=== PATIENT | female | born 1985 | race Caucasian/White ===

== ENCOUNTER 2023-10-16 17:43 | Emergency (ER) | payer OTHER, SELFPAY ==
[2023-10-16 17:58] VITALS: BP 144/94; PULSE 93; RESP 16; TEMP 36.8; O2SAT 100
--- NOTE | 2023-10-16 17:59 | ED.GENADULT ---
HPI - General Adult General Chief complaint: Upper Respiratory Infection Stated complaint: Throat Irritation,Cough Time Seen by Provider: 10/16/23 17:59 Source: patient Mode of arrival: ambulatory Limitations: no limitations History of Present Illness HPI narrative: 38-year-old female patient presents to clinic today with complaints of cough for 8 days that has become more productive. patient states that her came home 9 days ago from a work trip and was feeling ill in the next day she started with congestion. The cough has persisted since then and she is having worsening cough at night when laying down. she reports that during the day she feels like there is a sticky phlegm stuck in her throat that she can not get out. She is also experiencing hoarseness during the day when talking longer than a few minutes. patient denies fevers, chills, body aches, nausea and vomiting, diarrhea, shortness of breath, and chest pain. patient states she has a history of seasonal allergies for which she takes a daily antihistamine and was started on tirzepatide last week for weight loss. Related Data Home Medications Medication Instructions Recorded Confirmed tirzepatide (weight loss) 10/16/23 Allergies Allergy/AdvReac Type Severity Reaction Status Date / Time cefaclor [From [facility]] Allergy Rash Verified 10/16/23 18:05 Review of Systems Review of Systems: CONSTITUTIONAL: Denies fever, chills, or sweats. EYES: Denies visual changes, redness, or discharge. ENT: Denies rhinorrhea, congestion, sore throat, or otalgia. CARDIOVASCULAR: Denies chest pain, palpitations, or edema. RESPIRATORY: positive productive cough and negative dyspnea. GASTROINTESTINAL: Denies abdominal pain, nausea, vomiting, or diarrhea. GENITOURINARY: Denies dysuria or hematuria. SKIN: Denies rash or itching. MUSCULOSKELETAL: Denies back pain, joint pain, or myalgia. NEUROLOGIC: Denies headache, numbness, or weakness. PSYCHIATRIC: Denies anxiety or depression. [facility] Past Medical History Medical History (Updated 10/16/23 @ 18:46 by ZULMA Montilla) Obesity Seasonal allergies Comments at the time of my signature I agree with nursing past medical history, surgical, social, and family history. There is no relevant family history pertinent to the presenting complaint. Exam Narrative: GENERAL: Well-appearing, well-nourished, and in no acute distress. HEAD: Normocephalic, atraumatic. EYES: PERRLA and EOMI. ENT: Nares clear, no rhinorrhea or epistaxis. Mucous membranes moist. bilateral TMs visualized pearly mike with air bubbles, no erythema, bilateral canals clear. posterior oropharynx is free of drainage erythema and edema. NECK: Supple. No lymphadenopathy CHEST: Clear to auscultation. No respiratory distress. HEART: Regular rate and rhythm. No murmur heard. Normal peripheral pulses. ABDOMEN: Soft, nontender, nondistended, normal active bowel sounds. EXTREMITIES: Normal range of motion. No edema. SKIN: Warm, dry, no rash. NEURO: No focal deficits. Alert and oriented x3. Course Course Level of Care: Express Care Visit Vital Signs Vital signs: Vital Signs Temperature 36.8 C 10/16/23 17:58 Pulse Rate 93 10/16/23 17:58 Respiratory Rate 16 10/16/23 17:58 Blood Pressure 144/94 H 10/16/23 17:58 Pulse Oximetry 100 10/16/23 17:58 Oxygen Delivery Room Air 10/16/23 17:58 Temperature 36.8 C 10/16/23 17:58 Pulse Rate 93 10/16/23 17:58 Respiratory Rate 16 10/16/23 17:58 Blood Pressure 144/94 H 10/16/23 17:58 Pulse Oximetry 100 10/16/23 17:58 Oxygen Delivery Room Air 10/16/23 17:58 vital signs reviewed. The patient has been informed that they may have pre-hypertension or Hypertension based on a BP reading in the department. I recommend that the patient call the primary care provider listed on their discharge instructions or a physician of their choice this week to arrange follow up for furthe
== END 2023-10-16 19:01 | disposition home or self-care (01) ==
PROVIDERS: Emergency Provider Nurse Practitioner Family
DX: J04.0 Acute laryngitis (principal); K21.9 Gastro-esophageal reflux disease without esophagitis; E66.9 Obesity, unspecified; Z68.29 Body mass index [BMI] 29.0-29.9, adult
CPT/HCPCS: 99203; G0463